=== PATIENT | female | born 1990 | race Caucasian/White ===

== ENCOUNTER 2023-01-25 13:38 | Emergency (ER) | payer BC ==
[2023-01-25 13:50] VITALS: BP 146/90; PULSE 88; RESP 16; TEMP 98.1; BMI 26.6
[2023-01-25] MEDS ORDERED: SODIUM CHLORIDE 0.9% 500 ML INFUS.BAG IV ONE (14:00)
[2023-01-25] MEDS ORDERED: METOCLOPRAMIDE HCL INJECTION 10 MG/2 ML VIAL IVPB ONE (14:00)
[2023-01-25] MEDS ORDERED: ACETAMINOPHEN 325 MG TABLET (FP) PO ONE (14:00)
[2023-01-25] MEDS ORDERED: ACETAMINOPHEN 325 MG TABLET (FP) ONE (14:05)
[2023-01-25] MEDS ORDERED: METOCLOPRAMIDE HCL INJECTION 10 MG/2 ML VIAL ONE (14:05)
[2023-01-25] MEDS ORDERED: KETOROLAC TROMETHAMINE 15 MG/ML VIAL IVPUSH ONE (15:12)
[2023-01-25] MEDS ORDERED: KETOROLAC TROMETHAMINE 15 MG/ML VIAL ONE (15:13)
== END 2023-01-25 15:25 | disposition home or self-care (01) ==
LOC: FER 13:38
PROC: 3E033NZ Introduction of Analgesics, Hypnotics, Sedatives into Peripheral Vein, Percutaneous Approach (ICD-10-PCS; principal; 2023-01-25)
PROC: 3E033GC Introduction of Other Therapeutic Substance into Peripheral Vein, Percutaneous Approach (ICD-10-PCS; 2023-01-25)
DX: R51.9 Headache, unspecified (principal); R20.2 Paresthesia of skin
CPT/HCPCS: 70450-TC; 99284-25

== ENCOUNTER 2023-08-14 14:18 | Emergency (ER) | payer BC ==
[2023-08-14 14:33] VITALS: BP 139/99; PULSE 116; RESP 18; TEMP 98.7; BMI 24.3
[2023-08-14] MEDS: LACTATED RINGERS SOLUTION 1000 ML INFUS.BAG IV ONE (14:50)
[2023-08-14] MEDS ORDERED: ACETAMINOPHEN INJECTION 100 ML IVPB ONE (14:52)
[2023-08-14] MEDS ORDERED: METOCLOPRAMIDE HCL INJECTION 10 MG/2 ML VIAL ONE (14:52)
[2023-08-14] MEDS: ACETAMINOPHEN 1000 MG/100 ML BAG IVPB ONE (14:55)
[2023-08-14] MEDS: METOCLOPRAMIDE HCL INJECTION 10 MG/2 ML VIAL IVPB ONE (15:10)
[2023-08-14] MEDS: CYCLOBENZAPRINE HCL 5 MG TABLET PO ONE (16:35)
[2023-08-14] MEDS ORDERED: CYCLOBENZAPRINE HCL 5 MG TABLET ONE (16:40)
[2023-08-15] MEDS ORDERED: CYCLOBENZAPRINE HCL 5 MG TABLET PO ONE (15:20)
== END 2023-08-14 16:49 | disposition home or self-care (01) ==
LOC: FER 14:18
PROC: 3E033NZ Introduction of Analgesics, Hypnotics, Sedatives into Peripheral Vein, Percutaneous Approach (ICD-10-PCS; principal; 2023-08-14)
PROC: 3E033GC Introduction of Other Therapeutic Substance into Peripheral Vein, Percutaneous Approach (ICD-10-PCS; 2023-08-14)
DX: R51.9 Headache, unspecified (principal); R29.810 Facial weakness
CPT/HCPCS: 99284-25; J0131